=== PATIENT | male | born 1930 | race Caucasian/White ===

== ENCOUNTER 2016-10-19 21:11 | Inpatient (IN) | payer OTHER ==
--- NOTE | ~2016-10-19 | CN ---
Consultation Report [facility] [address] [place]. [address] NAME: KATHERINE UREÑA : 32 STATUS : ADM Caty PAT#: [id number] AGE: 85 ADM/REG DATE : 10/19/16 MR#: [id number] REPORT SERV DATE: 10/22/16 DICTATED BY: GUCCI POOL DATE: 10/22/16 REPORT STATUS : Draft TRANSCRIBED BY: MODJeovany DATE: 10/22/16 CONSULTATION NOTE DATE OF CONSULTATION: 10/22/2016 REASON FOR CONSULTATION: Tight left main coronary artery stenosis with unstable anginal symptoms. CHIEF COMPLAINT: "I had chest discomfort and shortness of breath for about ten days and came to the emergency room". HISTORY OF PRESENT ILLNESS: This 85-year-old gentleman with prior history of coronary artery disease, status post PCI with stenting thirteen years ago, reports being in his usual state of health until approximately ten days prior to admission. He notes that, he began to have progressive shortness of breath and exercise intolerance around that time. He had associated chest discomfort and found that his symptoms were relieved with rest. Typically fifteen minutes of rest would give him full relief and he would proceed with his activities. Over time, this became more pronounced and his ended up bringing him to the emergency department on 10/19/2016. At that time, his troponin I was elevated, and he was hospitalized for further evaluation. His EKG showed sinus rhythm. He underwent coronary arteriogram today that demonstrated severe left main coronary artery stenosis in excess of 95%. His echocardiogram showed near normal left ventricular function, ejection fraction of 55%, with calcified posterior mitral valve leaflet and mild mitral regurgitation. We were asked to see for possible urgent coronary artery bypass grafting and this was discussed with the patient and his in the room today. PRIOR MEDICAL HISTORY: 1. Coronary artery disease. 2. Status post prior PCI and stenting. 3. Hypertension. 4. Type 2 ipn-lycpzgr-bagkedoie diabetes mellitus. 5. Prostate cancer. 6. Glaucoma, status post left corneal transplant. 7. Probable esophageal stricture, dysphagia. PRIOR SURGICAL HISTORY: 1. Significant for lower extremity vein stripping. 2. Previous hemorrhoidectomy. 3. Left corneal transplant. 4. Prostate cryoablation. ALLERGIES: NONE KNOWN. MEDICATIONS: Include aspirin 81 mg daily, coenzyme Q10 200 mg p.o. daily, Glucotrol 10 mg Consultation Report [facility] [id number] [place]. [address] NAME: KATHERINE UREÑA : 32 STATUS : ADM Caty PAT#: [id number] AGE: 85 ADM/REG DATE : 10/19/16 MR#: [id number] REPORT SERV DATE: 10/22/16 DICTATED BY: GUCCI POOL DATE: 10/22/16 REPORT STATUS : Draft TRANSCRIBED BY: MICHAEL DATE: 10/22/16 p.o. daily, Prinzide 29/05.5 tabs one tab p.o. daily, Lotemax 0.5% ophthalmic suspension in left eye four times daily, metformin 1000 mg p.o. at bedtime, multivitamins with minerals one tablet p.o. daily, ofloxacin drops in left eye at bedtime daily, omega-3 fatty acid 1000 mg p.o. daily, simvastatin 40 mg p.o. at bedtime, Tess-128 5% one drop in right eye four times daily, Robitussin DM 5 mL p.o. q.i.d. p.r.n. cough, and joint support over the counter supplement one p.o. daily. SOCIAL HISTORY: He is retired, physically active and walks daily. He is . He denies use of tobacco, alcohol, or illicit drugs. He has two sons, one here today, and one son has palpitations. FAMILY HISTORY: Mother in child . He has one sister, who had carcinoma of the gallbladder. Otherwise, negative or as above. REVIEW OF SYSTEMS: GENERAL: Positive for his left corneal transplant, wearing upper dentures, missing lower teeth, recent shortness of breath and chest discomfort, negative for history of stroke, TIA, bleeding problems, or easy bruising. He did have history of prostate carcinoma and apparently has rising PSA per his last test. He is followed by Dr. Croft for that. He does have history of difficulty with food hanging up and sometimes regurgitating after eating. He suspects that, he has esophageal stricture, but has never seen a cottage supervisor or had endoscopy. He has lower extremity discomfort with walking, and recent testing showed no significant flow-limiting disease. Although, he has atherosclerotic disease in the lower extremities. PHYSICAL EXAMINATION: GENERAL: He is a pleasant elderly white male, in no acute distress. His height is 177.8 cm, weight 91.17 kg. VITAL SIGNS: Blood pressure 115/53, temperature 97.8, pulse is 59, respirations 20, saturation 95%. HEENT: Normocephalic, atraumatic. He has a full head of white hair, and pupils are equal, round, reactive to light and accommodation, sclerae clear, conjunctivae pink. Oral and buccal mucosa pink and moist, missing many lower teeth, but remaining teeth are in reasonable condition, although worn. He has upper dentures in place. Mallampati class 3 airway. NECK: Supple. No restricted range of motion. No carotid bruits, no jugular venous distention. Normal carotid upstroke. CHEST: Clear to auscultation, no use of accessory muscles, no chest wall tenderness, no deformity. CV: Regular rate and rhythm without murmur or rub. He has palpable and symmetric central and peripheral pulses, no clubbing, no cyanosis, nor edema. He does have varicosities in the lower extremities and scarring consistent with previous endoscopic vein stripping or harvest. ABDOMEN: Soft, obese, nontender, with normoactive bowel sounds. No hepatosplenomegaly. Consultation Report [place] [facility] [id number] [facility] [place]. [address] NAME: KATHERINE UREÑA : 32 STATUS : ADM Caty PAT#: [id number] AGE: 85 ADM/REG DATE : 10/19/16 MR#: [id number] REPORT SERV DATE: 10/22/16 DICTATED BY: GUCCI POOL DATE: 10/22/16 REPORT STATUS : Draft TRANSCRIBED BY: MICHAEL DATE: 10/22/16 /RECTAL: Declined. MUSCULOSKELETAL: No kyphoscoliosis. No asymmetry. NEUROLOGIC: He is alert, oriented to day, date, place, and situation. No tremors. SKIN, HAIR, AND NAILS: As above. No lesions, masses, or rashes. DATA: His coronary arteriogram which I reviewed today showing very tight stenosis at the ostia of the proximal LAD and proximal circumflex 99% or greater, 75% mid LAD stenosis, and 50% right PDA stenosis as well as 75% ramus stenosis. His labs show sodium of 138, potassium 4.2, chloride 104, CO2 of 25, BUN 40, creatinine 1.34. CBC is unremarkable. His lipid profile is unremarkable. EKG shows sinus rhythm. IMPRESSION: Multivessel coronary artery disease with tight left main equivalent, normal left ventricular function. We talked with him about possible coronary artery bypass grafting today, and the indications, benefits, and serious risks which include things like bleeding, infection, pneumonia, blood transfusions, damage to the kidneys, liver or lungs, heart attack, stroke, abnormal heart rhythm, mediastinitis, and even . Given his prior history of vein stripping, he will need vein mapping today prior to his surgery. We will hold his Prinzide in preparation for surgery anticipated tomorrow, and start him on vitamin C. We will also hold metformin. Using Society of Thoracic Surgeons database for risk prediction, mortality is predicted at 4.491%, any morbidity or mortality of 27.498% and this is discussed with the patient and his family today. We appreciate very much the opportunity to participate in this gentleman's care. MARTHA/MICHAEL Gucci Pool NSkyP. / [id number] CC: Amparo Ghotra M.D.
--- NOTE | ~2016-10-19 | CN ---
Consultation Report [facility] [address] [place]. [address] NAME: KATHERINE CARO : 32 STATUS : ADM IN [facility]#: [id number] AGE: 85 ADM/REG DATE : 10/19/16 MR#: [id number] REPORT SERV DATE: 10/26/16 DICTATED BY: MARTHA URIAS DATE: 10/26/16 REPORT STATUS : Draft TRANSCRIBED BY: MICHAEL DATE: 10/26/16 ELECTROPHYSIOLOGY CONSULTATION DATE OF CONSULTATION: 10/26/2016 REASON FOR CONSULTATION: Regarding sinus bradycardia and junctional bradycardia. HISTORY OF PRESENT ILLNESS: Mr. Caro is a pleasant 85-year-old gentleman, who underwent CAB earlier this week by Dr. Zacarias Schuster. He was receiving amiodarone and metoprolol in the postoperative care and prevention of atrial fibrillation and in that setting, had some junctional bradycardia and was still pacing from his epicardial pacing wires. Both of those medicines were stopped, and today, he is in normal sinus rhythm. We have been consulted about the possible pacemaker. PAST MEDICAL HISTORY: Notable for coronary disease, status post recent CAB; diabetes; osteoarthritis; history of prostate CA, treatment in 1994; hypertension; GE reflux disease. CURRENT MEDICATIONS: Aspirin, Pepcid, NovoLog insulin, nitroglycerin ointment. FAMILY HISTORY: Noncontributory. Negative for premature coronary disease. SOCIAL HISTORY: Negative for tobacco or alcohol. DIAGNOSTIC STUDIES: EKG currently demonstrates sinus rhythm with normal intervals. No evidence for ischemia, infarction, or chamber hypertrophy. Echocardiogram has shown normal cardiac structure and function, ejection fraction 55%. 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 At this point, I do not feel a permanent pacemaker is required. We will continue to follow him for any bradycardia, arrhythmias or any atrial fibrillation, or other tachyarrhythmias. We will try to avoid beta-blockers and amiodarone or any other sinus node suppressive agents. CAROLINE/MICHAEL Martha Urias M.D. / [id number] CC: Fahad Aguilar Jr, MD Consultation Report [place] [address] [facility] [place]. [address] NAME: KATHERINE CARO : 32 STATUS : ADM IN PAT#: [id number] AGE: 85 ADM/REG DATE : 10/19/16 MR#: [id number] REPORT SERV DATE: 10/26/16 DICTATED BY: MARTHA URIAS DATE: 10/26/16 REPORT STATUS : Draft TRANSCRIBED BY: MODL DATE: 10/26/16 Harshad Jones M.D.
--- NOTE | ~2016-10-19 | OP ---
Record Of Operation [facility] [address] [place]. [address] NAME: KATHERINE UREÑA : 32 STATUS : ADM Caty PAT#: [id number] AGE: 85 ADM/REG DATE : 10/19/16 MR#: [id number] REPORT SERV DATE: 10/23/16 DICTATED BY: CECE SCHUSTER DATE: 10/23/16 REPORT STATUS : Draft TRANSCRIBED BY: MODJeovany DATE: 10/23/16 DATE OF PROCEDURE: 10/24/2015 PREOPERATIVE DIAGNOSES: 1. Coronary artery disease with mjh-ST-njuurwmks myocardial infarction. 2. Type 2 eev-uggselk-ajhkslxkj diabetes mellitus. 3. Chronic kidney disease, stage II or III. 4. History of prostate carcinoma. 5. Hypertension. 6. Hyperlipidemia. POSTOPERATIVE DIAGNOSES: 1. 2. Coronary artery disease with msr-ZW-rstbauwpo myocardial infarction. 3. Type 2 bmj-owureei-aoerbzqpa diabetes mellitus. 4. Chronic kidney disease, stage II or III. 5. History of prostate carcinoma. 6. Hypertension. 7. Hyperlipidemia. PROCEDURE PERFORMED: 1. Urgent coronary artery bypass grafting x4, left internal mammary artery placed to left anterior descending, reverse saphenous vein graft placed to the ramus intermedius, reverse saphenous vein graft placed to the first obtuse marginal, reverse saphenous vein graft placed to the posterior descending artery. 2. Endoscopic vein harvest, saphenous vein from right and left thighs. 3. Transesophageal echocardiography. SURGEON: Cece Schuster M.D. SENIOR WATER RESOURCES ENGINEER: Jasbir Dupont and Yessica Llamas. ANESTHESIA: General with Roberto Carlos Crowder M.D. SALES MANAGEMENT INTERN: Kenia Berger M.D. INDICATIONS: This is an 84-year-old gentleman with type 2 diabetes and hypertension who developed sudden onset of chest discomfort on 10/19/2016. He came to the emergency room and ruled in for myocardial infarction. He was medically stabilized and transferred to the floor. Over the weekend, he was medically managed with good resolution of chest pain. On Saturday morning, he underwent a cardiac catheterization, it demonstrated significant left main equivalent coronary disease and posterior descending artery disease. His ventricular function was preserved with an ejection fraction greater than 50%. He underwent echocardiogram that did not show any surgically significant valvular dysfunction. There was mild mitral valve insufficiency. Ejection fraction was 60%. We were asked to see the patient for possible urgent revascularization and discussed this operation with the patient Record Of Operation [address] [place]. [address] NAME: KATHERINE UREÑA : 32 STATUS : ADM Caty PAT#: [id number] AGE: 85 ADM/REG DATE : 10/19/16 MR#: [id number] REPORT SERV DATE: 10/23/16 DICTATED BY: CECE SCHUSTER DATE: 10/23/16 REPORT STATUS : Draft TRANSCRIBED BY: MICHAEL DATE: 10/23/16 and his family. After lengthy discussion of the operation, its indications and risks, they wished to proceed. Operative risk includes a mortality of 4.5% by STS criteria and morbidity mortality of 27.5%, and this was shared with the family. FINDINGS AT OPERATION: 1. Cross-clamp 57 minutes. Total pump time 70 minutes. 2. The LAD was a 2 mm moderately diseased vessel. A 2.5 mm BERGER was anastomosed to it with good runoff. 3. The ramus intermedius was 1.75 mm heavily diseased. A 4 mm RSVG was anastomosed to it with good runoff. 4. The first obtuse marginal was 1.75 mm moderately diseased. A 4 mm RSVG was anastomosed to it with good runoff. 5. The posterior descending artery was 1.75 mm moderately diseased. A 4 mm RSVG was anastomosed to it with runoff. 6. The vein quality was okay. This did appear to be accessory saphenous vein in the leg from both thighs. The greater saphenous vein had been removed earlier for the family and patient when the patient had vein stripping. The vein quality did appear to be good. All grafts did have good Doppler signal at the end of the case. 7. PEDRO at the end of the operation demonstrated good ventricular function. There was a small PFO present with [id number]-mw-mlqzb shunt. There was mild mitral insufficiency and mild aortic insufficiency. PATHOLOGIC SPECIMENS: None. DESCRIPTION OF PROCEDURE: The patient was brought to the operating suite where general anesthesia was induced and airway secured with an endotracheal tube. Lines secured by Anesthesia and Hernandez catheter was placed. The patient's chest, abdomen, groin, and legs were prepped with Hibiclens and ChloraPrep and draped with Ioban sterile sheets. PEDRO probe was placed by Dr. Crowder and examination carried out as discussed above. The saphenous vein was harvested from the right and left thighs using endoscopic technique. Briefly, the vein was cut directly down upon through a 2 cm incision placed at the medial aspect of both knees. Then, using VasoView trocars, the vessels were dissected from the surrounding subcutaneous tissue and fat. The side branches were identified, ligated, divided with cautery. Once adequate length of vein had been dissected, a counter incision was made in both groins where the vein was ligated, divided, and brought through the knee incisions. The vein quality from both thighs was reasonable. We did obtain enough conduit I felt for bypass material. The leg wounds were then made hemostatic and closed in layers with absorbable suture, and skin closed subcuticular fashion. Then, a midline sternal incision was made and the sternum opened with a saw. The left hemithorax was elevated and the endothoracic fascia was incised. Side branch of the MARÍA were clipped and divided. Once the MARÍA was completely dissected, the patient was anticoagulated with heparin and chest tube placed in the left pleural cavity. The MARÍA was clipped and divided distally. There was good flow through the MARÍA and its pedicle was infiltrated with papaverine. Record Of Operation [place] [id number] [facility] [place]. [address] NAME: KATHERINE UREÑA : 32 STATUS : ADM Caty PAT#: [id number] AGE: 85 ADM/REG DATE : 10/19/16 MR#: [id number] REPORT SERV DATE: 10/23/16 DICTATED BY: CECE SCHUSTER DATE: 10/23/16 REPORT STATUS : Draft TRANSCRIBED BY: MODL DATE: 10/23/16 Next, the Sd retractor was placed in the pericardium over from the innominate vein. The diaphragm was T'd and tacked to the side of the chest wall. Cannulation pursestring sutures were placed and cannulation was carried out in routine manner. A retrograde cardioplegia cannula was placed in the coronary sinus. When all was in readiness, the patient was placed on cardiopulmonary bypass. Distal targets were marked out on the heart as described in the findings. Then, a heart support was placed. The aorta was crossclamped and an initial dose of cold blood cardioplegia solution was given in a combination of antegrade and retrograde fashion, and then a retrograde manner following proximal anastomoses. Following the first dose of cardioplegia, the heart was positioned for the PDA graft. Arteriotomy was made. The vein graft trimmed and anastomosed to it with 7-0 Prolene. This vein graft was measured back to the right side of the ascending aorta where it was divided. We then positioned the heart for the obtuse marginal graft. Another arteriotomy was made. The vein graft trimmed and anastomosed to it with 7-0 Prolene. This vein graft was then measured back to the left side of the ascending aorta where it was divided. Next, the proximal ends of the 2 vein grafts were anastomosed to 5 mm punch aortotomy with 6-0 Prolene. Another dose of cardioplegia was given and the heart was positioned for the ramus intermedius graft. Arteriotomy was made, and the vein graft trimmed and anastomosed to it with 7-0 Prolene. The vein graft was measured back to the left side of the ascending aorta where it was divided and anastomosed to a 4.5 mm punch aortotomy with 6-0 Prolene. Another dose of cardioplegia was given. We then positioned the heart for the LAD graft. Warming was begun. Arteriotomy was made at the mid LAD. The MARÍA was brought out the left chest through a notch in the pericardium over the pulmonary artery. The MARÍA was opened and anastomosed to the LAD with running suture of 8-0 Prolene. The endothoracic fascia was tacked to the epicardium. The patient was placed in Trendelenburg and final dose of warm blood cardioplegia given in a retrograde fashion. Ventricular and atrial pacing wires were placed. Following the last dose of cardioplegia and deairing of the aorta, the aortic cross clamp was removed. The distal and proximal anastomoses were inspected and made hemostatic. Doppler demonstrated good flow through the grafts. The heart resumed a slow sinus rhythm spontaneously and was paced in an atrial fashion at a rate of 80. Ventilation was begun. When the heart demonstrated good contractility, it was allowed to fill and eject. When deairing was completed, the patient was taken out of Trendelenburg. The ascending aortic vent removed and these pursestring sutures were tied and reinforced. The patient continued to do well and chest irrigated copiously with saline. Meticulous hemostasis was obtained. Hemasorb was placed along the cut edge of the sternum. Once the hemostasis was assured, the pericardium was draped over the anterior surface of the heart and tacked into position. Doppler demonstrated good flow through the grafts following protamine administration. Then, chest tubes were placed. The sternum was reapproximated with eight sternal wires. The clavipectoral fascia and linea alba closed with #1 Stratafix. Subcutaneous tissue was closed with Stratafix and skin closed in subcuticular fashion. Record Of Operation [address] [address] NAME: KATHERINE UREÑA : 32 STATUS : ADM Caty PAT#: [id number] AGE: 85 ADM/REG DATE : 10/19/16 MR#: [id number] REPORT SERV DATE: 10/23/16 DICTATED BY: CECE SCHUSTER DATE: 10/23/16 REPORT STATUS : Draft TRANSCRIBED BY: MICHAEL DATE: 10/23/16 The patient tolerated the procedure well. There were no complications. Sponge and needle counts were correct. DISPOSITION: The patient was left intubated, sedated, and transported to the intensive care unit in stable condition. DIAMOND/MICHAEL Cece Schuster M.D. / [id number] CC: Mian Cheema M.D. Ondrej J Lisy, M.D.
--- NOTE | ~2016-10-19 | HP ---
History And Physical [place] [id number] [facility] [place]. [address] NAME: KATHERINE UREÑA : 34 STATUS : ADM Caty PAT#: [id number] AGE: 85 ADM/REG DATE : 10/19/16 MR#: [id number] REPORT SERV DATE: 10/19/16 DICTATED BY: EMMA CAPONE DATE: 10/19/16 REPORT STATUS : Draft TRANSCRIBED BY: MODJeovany DATE: 10/19/16 DATE OF ADMISSION: 10/19/2016 CHIEF COMPLAINT: Chest pain, direct admission/transfer from outside hospital facility. HISTORY OF PRESENT ILLNESS: According to the information available, patient is a pleasant 85 year-old man, very active, with history of hypertension, coronary artery disease, status post prior cardiac stent over 15 years ago, history of diabetes, high cholesterol who presented to the emergency room department at [facility] in [place], [place] with complaints of chest pain. Patient and patient's family noticed that patient has started for the last eight to ten days to experience chest pain with exertion, chest tightness, and shortness of breath progressively with exertion. Patient has been working in his yard rather heavily for the last week and he has noticed that progressively he has started to have to rest to catch his breath to alleviate the chest discomfort sensation that he was getting while doing physical activity. Also, family has noticed that the symptoms has progressively worsened, becoming short of breath much easier than before. All symptoms were relieved with resting. No fever or chills reported; increasing cough, but attributed by the patient to allergies as this one dry cough. Today patient has been celebrating his 's birthday, but it seems that he had difficulties at times swallowing and he felt like he was choking. Therefore, he had several spells of coughing and then vomiting x1 after eating and then he developed a significant chest tightness. Patient's stated that he did not look good when he had returned from the bathroom and he had continued to complain of chest pain. Therefore, he was brought to the emergency room. In the emergency room, patient was noticed also to be hypertensive. Initial blood pressure 196/88 and later on during his stay in the emergency room in [facility], recorded blood pressure 205/110 by report. Patient has received treatment with nitroglycerin and aspirin and his symptoms of chest pain and tightness and shortness of breath has resolved. Because of the above presentation and because patient has a new technical documentation specialist, Dr. Call with [facility], patient was requested for transfers with direct admission under our Hospitalist Service for further management and evaluation. Note that initial cardiac markers, troponin I was negative at 0.02 and EKG showed no acute ischemic ST-T changes. Presently patient is symptom free, lying comfortably in bed. PAST MEDICAL HISTORY: Significant for hypertension. Significant for coronary artery disease, status post cardiac stent 15 years ago, apparently Dr. Honeycutt at the [place]. Patient had most recently been evaluated with a cardiac stress test in 2014 that showed no reversible ischemia and by records a 2D echo in 07/2015 showed ejection fraction 60%, mild diastolic dysfunction. History of diabetes type 2, not insulin dependent; history of hyperlipidemia; history of prior prostate cancer, treated surgically; history of corneal transplant and glaucoma. PAST SURGICAL HISTORY: Significant for TURP by Dr. Croft; history of hemorrhoidectomy; history of bilateral cataract surgery; cardiac stent in 2001; transplant cornea in 2014. ALLERGIES: NO KNOWN DRUG ALLERGIES. History And Physical [address] [address] NAME: KATHERINE UREÑA : 32 STATUS : ADM Caty PAT#: [id number] AGE: 85 ADM/REG DATE : 10/19/16 MR#: [id number] REPORT SERV DATE: 10/19/16 DICTATED BY: EMMA CAPONE DATE: 10/19/16 REPORT STATUS : Draft TRANSCRIBED BY: MICHAEL DATE: 10/19/16 HOME MEDICATIONS: According the list provided, patient is supposed to take loteprednol 0.5% ophthalmic suspension one drop four times a day in the left eye, Ocuflox 0.3% ophthalmic solution one drop at bedtime in the left eye, ophthalmic solution Tess 128, 5% one drop four times a day in the right eye, Glucotrol 10 mg p.o. daily, lisinopril HCTZ 20/12.5 one p.o. daily, omega-3 fatty acid fish oil 1000 mg p.o. daily, multiple vitamin with minerals Centrum tablet one p.o. daily, aspirin 81 mg p.o. daily, coenzyme Q10 200 mg p.o. daily, Robitussin rmip-aot-czvnnen, the patient has taken only one dose today p.r.n. cough, Zocor 40 mg p.o. at bedtime, metformin 1000 mg p.o. at bedtime and gsgv-lht-lizjxqy "joint support" one tablet p.o. daily. SOCIAL HISTORY: The patient is retired, , lives with family. Denies tobacco abuse. He drinks alcohol on rare occasional situations. Denies IV illicit recreational drug abuse. Very active at home. FAMILY HISTORY: Significant for hypertension, also history of stomach cancer. REVIEW OF SYSTEMS: Per H and P, otherwise negative in all review of systems. Please note, the comprehensive review of system was obtained and pertinent positives were including in the H and P. PHYSICAL EXAMINATION: GENERAL: Pleasant, cooperant, in no acute distress at this moment. VITAL SIGNS: On arrival in our hospital, blood pressure 184/84, pulse 65, respiratory rate 20, temperature 98.1, oxygen saturation 94% in room air. Note that vital signs at the emergency room department [facility] showed blood pressure 196/88, it was high as 205/110, pulse 71, oxygen saturation 97% in room air. HEENT: With bilateral cataracts. Extraocular movements intact. Throat, mild erythema. No exudate. NECK: Supple. No JVD. No bruits. No thyromegaly. No lymph nodes. LUNGS: Bilateral air entry with few dry crackles at bases. No wheezing. Good airway movement. HEART: Positive S1, S2. Regular rate and rhythm. Positive soft mitral regurgitation murmur at the apex. Increased S2 at the aortic area. No rub, no gallop. PMI nondisplaced by palpation. ABDOMEN: Positive bowel sounds. Soft, nontender, no guarding, no hepatosplenomegaly. EXTREMITIES: Decreased range of motion. Osteoarthritic changes. No clubbing, no cyanosis, no edema, no calf tenderness. +2 pulses. NEUROLOGIC: Alert and oriented x3. Grossly nonfocal. Cranial nerves II through XII grossly intact. Motor strength 5/5 symmetrical bilateral. Deep tendon reflexes 2/2, symmetrical bilateral. BACK: With decreased range of motion, but no focal localized tenderness. No CVA tenderness. SKIN: No bruises, no rashes, no lacerations. SIGNIFICANT LABORATORY DATA: EKG sent with the patient from [facility] department showed normal sinus rhythm at 77 beats per minute. No acute ST elevation. History And Physical [address] [address] NAME: KATHERINE UREÑA : 32 STATUS : ADM Caty PAT#: [id number] AGE: 85 ADM/REG DATE : 10/19/16 MR#: [id number] REPORT SERV DATE: 10/19/16 DICTATED BY: EMMA CAPONE ION DATE: 10/19/16 REPORT STATUS : Draft TRANSCRIBED BY: MODL DATE: 10/19/16 No old EKG available for comparison. No other laboratory data available as patient is a direct admission. Please note that the review of the medical records sent with the patient shows reports of the chest x-ray that showed no acute infiltrate. White cell count 7.8, hemoglobin 13.1, platelet count 219. Sodium 135, potassium 4.7, chloride 104, bicarb 22, BUN 37, creatinine 1.3, glucose 227, calcium 9.4. Liver function tests within normal limits. Troponin I 0.02, which is within normal limits. ASSESSMENT AND PLAN AND PROBLEM LIST: Patient is a pleasant 85-year-old white man with known history of prior coronary artery disease and prior cardiac stent, presented with chest pain and symptoms suggesting crescendo angina. IMPRESSION: 1. Cardiovascular. a. Chest pain with moderate risk for acute coronary syndrome with symptoms suggesting crescendo angina. b. Coronary artery disease, status post prior cardiac stent. c. Hypertension urgency. d. Congestive heart failure with mild diastolic dysfunction by prior 2D echo. For all the above, patient has been admitted on the Hospitalist Service under telemetry setting. We are going to continue to monitor CK and troponin I and monitor EKG. We are going to further investigated with a nuclear medical stress test in a.m. and a 2D echo. Obtain Cardiology consult with Dr. Jakub [facility], especially with the patient's family's request. Obtain bilateral renal arterial Doppler ultrasound to assess for possible renal artery stenosis. Continue nitro paste 1 inch q.8 hours and continue aspirin and use lisinopril 20 mg p.o. b.i.d. Add small dose of Coreg as tolerated, 6.25 mg p.o. b.i.d. Use IV hydralazine p.r.n. for increased blood pressure. Strict I's and O's and daily weights. 1. Endocrinologic problem. a. Diabetes type 2, not insulin dependent without complications. We are going to hold metformin for now. We are going to hold Glucotrol if patient is n.p.o. and use only sliding scale NovoLog insulin. Check a hemoglobin A1c. Provide dietary changes and diabetic education. b. Hyperlipidemia, mixed type. Continue low-cholesterol diet. Continue statin. 2. Osteoarthritis. Provide adequate pain control. 3. Prostate cancer by history. 4. Gastroesophageal reflux disease with possible esophageal stricture. Recommend further outpatient evaluation and followup and possible EGD. 5. Glaucoma and status post corneal transplant. Continue patient's ophthalmic drops. PROGNOSIS: Good for this admission. Discussed with patient and patient's family, questions were answered in full. Please note, the patient is a full code at this moment as discussed with patient at bedside. Please note, also the written H and P, and written orders and instructions. RF/MODL History And Physical [address] [address] NAME: KATHERINE UREÑA : 32 STATUS : ADM Caty PAT#: [id number] AGE: 85 ADM/REG DATE : 10/19/16 MR#: [id number] REPORT SERV DATE: 10/19/16 DICTATED BY: EMMA CAPONE ION DATE: 10/19/16 REPORT STATUS : Draft TRANSCRIBED BY: MICHAEL DATE: 10/19/16 Emma Capone M.D. / [id number] CC: MD Harshad Cha M.D. Vinay Deep Madan, MD
--- NOTE | ~2016-10-19 | CN ---
Consultation Report [facility] [address] [place]. [address] NAME: KATHERINE UREÑA : 32 STATUS : ADM IN PAT#: [id number] AGE: 85 ADM/REG DATE : 10/19/16 MR#: [id number] REPORT SERV DATE: 10/25/16 DICTATED BY: HANNAH SEGOVIA DATE: 10/25/16 REPORT STATUS : Draft TRANSCRIBED BY: MODJeovany DATE: 10/25/16 NEPHROLOGY CONSULTATION DATE OF CONSULTATION: 10/25/2016 REASON FOR CONSULTATION: Acute renal failure. HISTORY OF PRESENT ILLNESS: This is an 85-year-old, gentleman, who has known history of coronary disease and who may also have early stage 3 chronic kidney disease with baseline creatinine typically ranging from 1.15 to 1.3 mg/dL. He does have a longstanding history of diabetes and hypertension. He presented on 10/19/2016 with progressive chest discomfort and shortness of breath and exercise intolerance. He was evaluated by the unindentured apprentice, underwent coronary arteriogram which demonstrated 99% stenotic left main disease. He underwent urgent coronary artery bypass grafting on 10/23/2016. The surgery was largely uneventful, and the patient was rapidly extubated in the ICU and went to the floor the next day, which would have been yesterday 10/24/2016. Serum creatinine the day of surgery was 1.12 mg/dL. The subsequent day, it measured 1.17 mg/dL. Overnight last night, he was noted to have junctional rhythm for 6 hour span with escape rates dropping into the 30s to 40s beats per minute. He was noted to have systolic blood pressures in the 100s where as previously his systolics have been in the 130s frequently. He was having a little bit of chest discomfort at that time. A transvenous pacemaker was placed early this morning with capture rate in the low 80s. He noted immediate drop in chest discomfort when that occurred. Overnight, he had made almost no urine whatsoever. However, he did not have a Hernandez catheter at that time. Hernandez catheter was replaced this morning. He has had about 600 mL urine output since 07:30 a.m. through 1600 hours today. He indicates some burning and a little bit of straining when he is attempting to urinate yesterday. He denies any fevers, chills, loss of appetite, or diarrhea. He is tolerating p.o. food and drink. He has no prior history of acute renal failure, and there is no history in the family of kidney disease. His creatinine today measures 2.32 mg/dL, and we were consulted to assist. PAST MEDICAL HISTORY: 1. Possibly chronic kidney disease stage 3 with baseline creatinine from the old records measuring 1.1 to 1.3 mg/dL. 2. Longstanding history of diabetes type 2. 3. Longstanding history of hypertension. 4. Coronary artery disease, for which he had undergone cardiac stent vessel stenting a couple of years ago. He underwent CABG x3 vessels on 10/23/2016. He had a non ST- elevated myocardial infarction which was very mild when he presented. 5. Remote prostate cancer several years ago which required radiation and chemotherapy followed by cryotherapy. 6. Hyperlipidemia. 7. Status post TURP. 8. History of corneal transplant in 2014. 9. History of glaucoma. Consultation Report [address] [address] NAME: KATHERINE UREÑA : 32 STATUS : ADM IN [facility]#: [id number] AGE: 85 ADM/REG DATE : 10/19/16 MR#: [id number] REPORT SERV DATE: 10/25/16 DICTATED BY: HANNAH SEGOVIA DATE: 10/25/16 REPORT STATUS : Draft TRANSCRIBED BY: MICHAEL DATE: 10/25/16 10.Possible history of esophageal strictures. 11.Osteoarthritis especially affecting the hands. He indicates that he has been taking Advil on a daily basis for the past 2 years. HOME MEDICATIONS: Baby aspirin, Co-Enzyme Q10, glipizide, lisinopril/HCTZ, loteprednol ophthalmic suspension, metformin, multivitamin, ofloxacin ophthalmic drops, omega-3 fatty acid capsules, simvastatin, sodium chloride ophthalmic washes, Robitussin as needed, some type of dietary supplement for joint support which is not named in the chart. ALLERGIES: NO KNOWN DRUG ALLERGIES. SOCIAL HISTORY: He lives with his , who is very supportive. He does not smoke or abuse alcohol or any illicit substances. He stays very physically active in the yard and does a lot of work in the yard. He has two sons. FAMILY HISTORY: His mother in childbirth. He has one sister who had carcinoma of the gallbladder. REVIEW OF SYSTEMS: GENERAL: Denies any fevers or chills. GI: Denies nausea, vomiting, or diarrhea. RESPIRATORY: Denies any coughing. CARDIOVASCULAR: At present denies any chest discomfort. : He indicates that when the Hernandez catheter was taken out early yesterday that he had significant straining and burning sensation when he attempted to urinate. He cannot say with certainty that his bladder has become distended with urine. According to his nurse, he did not have a dramatically elevated postvoid residual when the Hernandez catheter was replaced today. SKIN: No acute rashes. NEUROLOGIC: He denies lightheadedness when he stands to ambulate. All other review of system was negative and noncontributory. PHYSICAL EXAMINATION: VITAL SIGNS: Temperature 98.8, blood pressure 149/67. Notably his systolic dropped into the low 100s multiple times last night while he was in junctional rhythm. Heart rate 72 beats per minute. Respiratory rate 16 breaths per minute. GENERAL: He is well-developed, well-nourished gentleman, who appears his stated age. He is alert, lucid, and in no distress. He is very pleasant. HEENT: Normocephalic, atraumatic. External ears and nose normal. Sinuses nontender. Oropharynx, mucous membranes are moist and pale, free of any ulcerations or exudates. He has dentures in the upper plate. Eye exam; lids and conjunctivae are free of any exudates or bleeding. Mucous membranes are moist. Sclerae anicteric. Pupils are equal, round, and reactive to light. NECK: Supple. Easily movable without meningismus. No palpable masses or nodules. Trachea Consultation Report [address] [place]. [address] NAME: KATHERINE UREÑA : 32 STATUS : ADM IN [facility]#: [id number] AGE: 85 ADM/REG DATE : 10/19/16 MR#: [id number] REPORT SERV DATE: 10/25/16 DICTATED BY: HANNAH SEGOVIA DATE: 10/25/16 REPORT STATUS : Draft TRANSCRIBED BY: MODL DATE: 10/25/16 midline. Thyroid unremarkable. LYMPHATIC: Anterior and posterior neck, supraclavicular and abdominal regions were free of lymphadenopathy. RESPIRATORY: Efforts are nonlabored. Lung gunter are clear to auscultation throughout. CARDIOVASCULAR: Regular rate and rhythm is appreciated without any gallop, rub, or murmur. He has trace dependent peripheral edema of the legs. He has normal warmth and capillary refill, velocity in the hands and feet. ABDOMEN: Mildly protuberant, nontender. There is no guarding. No evidence of organomegaly. SKIN: No rashes, breakdown, or discoloration. Skin turgor was normal. There is no cyanosis. STUDIES: Urinalysis is pending. Chest x-ray, status post sternotomy. He has mildly elevated right hemidiaphragm and a small right-sided effusion. Chemistry; sodium 137, potassium 5.1, chloride 105, CO2 of 23, BUN 58, creatinine 2.3, magnesium 2.8, albumin 3.7. Total bilirubin, alk phosphatase, ALT, and AST were all within normal limits. Hemoglobin A1c measured 6.5%. Troponin I this morning measured 0.84 ng/mL. IMPRESSION: 1. Acute kidney injury which I doubt is directly related to the CABG which occurred two days ago. I would have expected a rise in serum creatinine quicker than what we are seeing. I think it is more likely that he had retention that has been relieved with Hernandez catheter. Other thought would be hypotension causing overt prerenal entity versus acute tubular necrosis. 2. Chronic kidney disease stage IIIA based on old records of serum creatinine. 3. Osteoarthritis, using chronic NSAIDs which may be contributing to CKD stage IIIA. 4. Postoperative day #2 status post CABG on 10/23/2016. 5. Non ST-elevated myocardial infarction which led to the CABG. 6. Postoperative onst-vf-waebrult anemia. 7. Junctional rhythm overnight last night now with transvenous pacer and more stable rhythm with blood pressure stabilized now. 8. Other past medical history and chronic problems as outlined above. PLAN/RECOMMENDATION: 1. Keep the Hernandez catheter in for now. Measure strict intake and output and document these. 2. Renal diet 1800 calorie. 3. Daily chemistries and daily determination for need for hemodialysis. It is not indicated at this time. 4. Urinalysis as well as random urine sodium, random urine urea, and random urine creatinine, so as to calculate fractional excretion of sodium, fractional excretion of urea. 5. Normal saline 1 L IV 60 mL/h overnight. 6. Renal ultrasound to be undertaken tomorrow if there is failure to improve in any capacity with the aforementioned measures. Thank you for consulting me in the care of this complicated patient. Our service will Consultation Report [place] [address] [place]. [address] NAME: KATHERINE UREÑA : 32 STATUS : ADM IN PAT#: [id number] AGE: 85 ADM/REG DATE : 10/19/16 MR#: [id number] REPORT SERV DATE: 10/25/16 DICTATED BY: HANNAH SEGOVIA DATE: 10/25/16 REPORT STATUS : Draft TRANSCRIBED BY: MICHAEL DATE: 10/25/16 follow carefully. CAROLYN/MICHAEL Hannah Segovia M.D. / [id number] CC: Fahad Aguilar Jr, MD John Cranwell, M.D.
--- NOTE | ~2016-10-19 | DS ---
Discharge Summary [facility] [address] [place]. [address] NAME: KATHERINE UREÑA : 34 STATUS : DIS IN PAT#: [id number] AGE: 85 ADM/REG DATE : 10/19/16 MR#: [id number] REPORT SERV DATE: 10/30/16 DICTATED BY: JR. AGUILAR WILLIAM JOHN DATE: 10/29/16 REPORT STATUS : Draft TRANSCRIBED BY: MICHAEL DATE: 10/29/16 ADMISSION DATE: 10/19/2016 DISCHARGE DATE: 10/29/2016 DISCHARGE DIAGNOSES: Include. 1. 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 2. Atrial fibrillation with rapid ventricular response as well as junctional rhythm on beta-blockade and amiodarone with prolonged bradycardia. 3. Acute kidney injury. 4. Diabetes mellitus type 2. 5. History of hypertension. 6. Hypoxic respiratory failure-resolved. OPERATIONS, PROCEDURES, AND TREATMENTS: Include. 1. Urgent coronary artery bypass graft x4 with left internal mammary artery to the left anterior descending, reverse saphenous vein graft placed to the ramus intermedius, reverse saphenous vein graft placed to first obtuse marginal, and reverse saphenous vein graft placed to the posterior descending arteries with intraoperative transesophageal echocardiogram which showed an ejection fraction of greater than 50% with mild mitral valve insufficiency. 2. Renal artery duplex ultrasound done 10/20/2016 showed no Doppler evidence of significant renal artery stenosis. The renal veins were patent bilaterally. There was elevated resistive indices in both kidneys possibly suggesting underlying medical renal disease. 3. Transthoracic echocardiogram done 10/25/2016 was a technically difficult study due to poor acoustic windows with normal left ventricular systolic function calculated at 55%- 60%, mildly dilated right ventricle with preserved systolic function. There was valvular regurgitation stenosis not assessed on that study. 4. Preoperative transthoracic echocardiogram done on 10/20/2016 with Definity showed normal left ventricular size and function. Ejection fraction 55% with mild left ventricular diastolic dysfunction. There was normal right ventricular size and systolic function. Posteriorly leaflet of the mitral valve was thickened and calcified with mildly restrictive mobility. There was only mild mitral regurgitation. No evidence of mitral stenosis. 5. PA and lateral chest x-ray done 10/21/2016 showed normal heart size with clear lungs. 6. Carotid flow study done 10/22/2016, showed findings compatible with category 1 disease involving the cervical portion of the right and left internal carotid with patent antegrade vertebral flow. 7. Cardiac catheterization done 10/22/2016 which showed severe coronary artery calcifications with 25% origin of left main disease, left main equivalent 99% origin of the LAD with 99% and thrombus or calcified plaque left circumflex with diffusely diseased LAD with 75% and a mid LAD stent. 8. Vein mapping done 10/22/2016. 9. Multiple followup chest x-rays while patient was intubated. 10.Renal ultrasound done 10/25/2016, showed symmetric kidneys with no acute findings. Discharge Summary [place] [id number] [facility] [place]. [address] NAME: KATHERINE UREÑA : 32 STATUS : DIS IN PAT#: [id number] AGE: 85 ADM/REG DATE : 10/19/16 MR#: [id number] REPORT SERV DATE: 10/30/16 DICTATED BY: JR. AGUILAR WILLIAM JOHN DATE: 10/29/16 REPORT STATUS : Draft TRANSCRIBED BY: MICHAEL DATE: 10/29/16 DISCHARGE MEDICATIONS: Include. 1. Vitamin C 1000 mg orally twice a day. 2. Aspirin 81 mg orally daily. 3. Ofloxacin eyedrops, left eye at bedtime. 4. Coenzyme Q 200 daily. 5. Lotemax 1 drop 4 times a day to the left eye. 6. [place]-3 fatty acid 1000 mg daily. 7. Simvastatin 40 mg daily. 8. Artificial tears as needed. 9. Glipizide 10 mg daily. 10.Prinzide-lisinopril/hydrochlorothiazide 20/12.5, one tablet daily. 11.Multivitamin tablet daily. 12.Glucophage 1000 mg at bedtime. 13.Amiodarone 200 mg orally twice a day. HOSPITAL COURSE: The patient was a pleasant 85-year-old gentleman who presented to the emergency room on 10/19/2016 with chest pain. He was a direct admit from [facility]. The patient had been working in the yard heavily for the prior week. He noticed progressively that he started to have trouble catching his breath and doing activity. All symptoms were relieved with rest. He was brought to the emergency room at [facility] and was noted to be hypertensive, treated with nitroglycerin and aspirin. There was concern of cardiac disease. The patient was therefore transferred to [facility] for further care. On initial exam, temperature is 98.1, blood pressure 184/84, heart rate 65, respiratory rate 20, saturating 94% on room air. He had a few dry crackles in the lung. Heart exam was mostly unremarkable. EKG showed no ST elevation. Please see Dr. Emma Nayak's note admission history for complete details. For the chest pain, the patient was seen in consultation by Dr. Berger of Cardiology. Recommended IV heparin, serial cardiac enzymes with coronary angiography planned. The patient underwent echocardiogram and cardiac catheterization which is detailed above. The patient was found to have multivessel coronary artery disease, and was evaluated by Dr. Schuster of Thoracic Surgery and felt to be a good candidate for bypass grafting. The patient underwent a renal duplex study as well as carotid flow study prior to surgery and eventually had 4-vessel coronary artery bypass graft as detailed above. In the postoperative course, patient proceeded quite nicely. Unfortunately, he did develop a junctional rhythm about three days prior to discharge. At that time, he was on amiodarone as well as Coreg and he had prolonged bradycardia. The patient actually had a temporary pacemaker and was paced for approximately 24 hours. With time for amiodarone and beta odessa to wash out, the patient's rhythm returned to sinus rhythm. He did well on this regimen until the evening of 10/28/2016. He again had reversion to rapid ventricular response. He was placed on oral amiodarone with no recurrence. He was seen and evaluated by Cardiology and felt to not need pacemaker at this time. On 10/29/2016, Thoracic Surgery and Cardiology both felt the patient could be discharged home. He has a followup appointment with Dr. Harshad Jones, his primary care provider, tomorrow for Coumadin monitoring and routine health issues. He also has a followup appointment with Dr. Call of Cardiology on 11/27/[address] Marlo Domínguez of Thoracic Surgery on 12/27/2016. Discharge Summary [facility] [address] [place]. [address] NAME: KATHERINE UREÑA : 34 STATUS : DIS IN PAT#: [id number] AGE: 85 ADM/REG DATE : 10/19/16 MR#: [id number] REPORT SERV DATE: 10/30/16 DICTATED BY: JR. AGUILAR WILLIAM JOHN DATE: 10/29/16 REPORT STATUS : Draft TRANSCRIBED BY: MICHAEL DATE: 10/29/16 Regarding the patient's acute kidney injury, this occurred after the episode of bradycardia and likely represented hypoperfusion. His renal function has returned to normal and he is discharged with a BUN of 33 and creatinine of 1.1. As the patient's diabetes mellitus type 2, this is quite well controlled on low doses of insulin and will be reverted back to his oral medications at discharge. DISCHARGE DIET: A cardiac diet/ADA diet. ACTIVITY: As tolerated. For discharge exam and laboratory, please see daily progress note. This discharge took 38 minutes for patient encounter, coordination of care, and documentation. DICTATED BY: Fahad Aguilar Jr, MD WJF/MICHAEL Fahad Aguilar Jr, MD / [id number] CC: Fahad Aguilar Jr, MD John Cranwell, M.D.
--- NOTE | ~2016-10-19 | CN ---
Consultation Report [facility] [address] [place]. [address] NAME: KATHERINE UREÑA : 34 STATUS : ADM Caty PAT#: [id number] AGE: 85 ADM/REG DATE : 10/19/16 MR#: [id number] REPORT SERV DATE: 10/20/16 DICTATED BY: CARLA ACE DATE: 10/20/16 REPORT STATUS : Draft TRANSCRIBED BY: MICHAEL DATE: 10/20/16 CARDIOLOGY CONSULTATION DATE OF CONSULTATION: REFERRING REASON: Chest pain. HISTORY OF PRESENT ILLNESS: This is a pleasant 85-year-old white gentleman, well known to Dr. Call from [facility], who has been transferred last night from [facility] for chest pain and some knee dysphagia. He was found to have elevated blood pressure up to 254/110. I reviewed available records and discussed situation with the patient. He has a known CAD with remote history of PCI to unknown vessels at [facility] 14 years ago. He has diabetes, hypertension, hyperlipidemia. He has a negative cardiac stress test in 2016 with preserved systolic function. Over the last one week, he has exertional dyspnea and poorly defined chest tightness. He has some episodes of dysphagia also. He was feeling congested. His blood pressure was elevated. His initial troponin was negative at an outside emergency room, but now is increasing to 0.06 and 0.08. His chest tightness resolved with some nitro paste. He remains hemodynamically stable. Electrocardiogram is normal. The rest of review of systems negative. The patient denied any lower extremity edema. No palpitation or syncope. PAST MEDICAL HISTORY: Coronary artery disease with remote history of PCI to unknown vessel 14 years ago at [facility], history of negative nuclear cardiac stress test for ischemia in 2016 with EF of 60%, hypertension, hyperlipidemia, diabetes mellitus, peripheral artery disease, history of corneal transplant. ALLERGIES: NO KNOWN DRUG ALLERGIES. HOME MEDICATIONS: Aspirin 81 mg once a day, Glucotrol once a day, lisinopril with hydrochlorothiazide 20/12.5 mg once a day, metformin 1 g twice a day, and simvastatin 40 mg once a day, Robitussin. 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 He is still physically active, working in his yard. He walks without any support. He is . Denies smoking, drinking alcohol, or using street drugs. FAMILY HISTORY: Negative for sudden cardiac or premature coronary artery disease in the family. PHYSICAL EXAMINATION: GEN - No acute distress. VITAL SIGNS: Blood pressure 129/60, heart rate 71 and regular. HEENT - Pupils reactive to light and accommodation. Moist mucosa membrane. NECK: No JVD. Normal carotid upstroke. No carotid bruits. Consultation Report [address] [place]. [address] NAME: KATHERINE UREÑA : 34 STATUS : ADM Caty PAT#: [id number] AGE: 85 ADM/REG DATE : 10/19/16 MR#: [id number] REPORT SERV DATE: 10/20/16 DICTATED BY: CARLA ACE DATE: 10/20/16 REPORT STATUS : Draft TRANSCRIBED BY: MICHAEL DATE: 10/20/16 LUNGS: Clear to auscultation bilaterally. Normal inspiratory efforts. COR: Normal S1, S2. No S3 or S4. No significant rub or murmurs. ABD: Obese, distended, nontender. EXT: No edema. Pedal pulses strong and equal bilaterally. SKIN: Warm with normal turgor. MS - No kyphosis. NEURO/PSY - Alert and oriented. Nonfocal. DATA: CBC remarkable for hemoglobin of 12. Creatinine 1.37. Troponin increasing from 0.06 to 0.08. Electrocardiogram; normal sinus rhythm, 68 beats per minute. No acute ST-T changes. Brain natriuretic peptide 86. Hemoglobin A1c 6.7. Chest x-ray in outside institution was within normal limits. ASSESSMENT AND PLAN: Chest pain, dyspnea, and elevated troponin, likely acute coronary syndrome. The patient will be started on intravenous heparin. We will continue aspirin and nitro paste, and I agree on carvedilol, and continue AMANDA inhibitor and statin. We will proceed with coronary arteriogram on Saturday. The risks and benefits were explained to the patient. He agreed to proceed. We will follow the cardiac enzymes also. Echocardiogram has been already ordered by primary service. NALINI/IMCHAEL Carla Ace M.D. / [id number] CC: Panda Da Silva MD
[~2016-10-19 21:11] MED LIST: CENTRUM PO; COQ10100 MG OR; FISH-EPA1000 MG PO; GLUCOPHAGE1000 MG PO; GLUCOTRO10 PO; ZESTORETIC1 TAB PO; ZOCOR10 PO
[2016-10-19] MEDS ORDERED: LOTEMAX OPH SUSP5 ML OPH (21:39)
[2016-10-19] MEDS ORDERED: OCUFLOX OPH (21:41)
[2016-10-19] MEDS ORDERED: GLUCOTRO10 PO (21:42)
[2016-10-19] MEDS ORDERED: MURO1285% OPH (21:42)
[2016-10-19] MEDS ORDERED: PRINZIDE1 TA1 PO (21:43)
[2016-10-19] MEDS ORDERED: ROBITUSSIN PO (21:43)
[2016-10-19] MEDS ORDERED: FISH-EPA1000 MG PO (21:43)
[2016-10-19] MEDS ORDERED: ZOCOR40 PO (21:44)
[2016-10-19] MEDS ORDERED: ASAB PO (21:44)
[2016-10-19] MEDS ORDERED: CENTRUM PO (21:44)
[2016-10-19] MEDS ORDERED: COQ-10200 MG PO (21:44)
[2016-10-19] MEDS ORDERED: GLUCOPHAGE1000 MG PO (21:45)
[2016-10-19] MEDS ORDERED: JOINT SUPPORT PO (21:45)
[2016-10-19 22:37] LABS: BASOPHILS 0.4 %; BASOPHILS ABSOLUTE 0.03 10/3/uL (0.0-0.16); EOSINOPHILS ABSOLUTE 0.51 10/3/uL (0.0-0.53); HEMATOCRIT 36.9 % (40.0-51.0); HEMOGLOBIN 12.8 g/dL (13.6-17.8); IMMATURE GRANULOCYTES 0.3 %; IMMATURE GRANULOCYTES ABSOLUTE 0.02 10/3/uL (0.0-0.11); LYMPHOCYTES 26.2 %; LYMPHOCYTES ABSOLUTE 1.91 10/3/uL (0.67-4.30); MEAN CORPUS HGB CONC 34.7 g/dL (32.0-36.0); MEAN CORPUSCULAR HEMOGLOB 32.7 pg (26.0-34.0); MEAN CORPUSCULAR VOLUME 94.4 fL (80-100); MEAN PLATELET VOLUME 9.4 fL (9.2-13.0); MONOCYTES 8.4 %; MONOCYTES ABSOLUTE 0.61 10/3/uL (0.21-1.20); NEUTROPHILS 57.7 %; PLATELET COUNT 210 10/3/uL (150-400); RBC DISTRIBUTION WIDTH 13.1 % (12.0-16.0); RED CELL COUNT 3.91 10/6/uL (4.7-6.1); WHITE BLOOD CELLS 7.3 10/3/uL (4.5-10.5)
[2016-10-19 22:38] LABS: MANUAL DIFF NO %
[2016-10-19 22:44] LABS: PARTIAL THROMBO TIME 32.6 SEC (22.5-37.2); PROTIME (NOT ORD) 13.5 SEC (12.0-14.5)
[2016-10-19 22:46] LABS: D-DIMER QUANTITATIVE 0.51 ug/mLFEU (< 0.50)
[2016-10-19 22:55] LABS: ALBUMIN 3.7 G/DL (3.5-5.0); CHLORIDE, SERUM 108 MMOL/L (96-112); CO2 (CARBON DIOXIDE) 24 MMOL/L (24-34); CPK 63 U/L (0-200); CREATININE 1.37 MG/DL (0.70-1.30); GFR AFRICAN AMERICAN 55 ML/MIN (>=60); GFR NON AFRICAN AMERICAN 47 ML/MIN (>=60); GLUCOSE, SERUM 157 MG/DL (60-99); PHOSPHORUS, SERUM 2.5 MG/DL (2.5-4.5); POTASSIUM, SERUM 4.8 MMOL/L (3.5-5.3); SODIUM, SERUM 139 MMOL/L (135-148)
[2016-10-19 22:57] LABS: BUN (BLOOD UREA NITROGEN) 35 MG/DL (6-23)
[2016-10-19 22:58] LABS: TROPONIN I 0.06 NG/ML (<0.05)
[2016-10-20 06:58] LABS: BASOPHILS 0.4 %; BASOPHILS ABSOLUTE 0.03 10/3/uL (0.0-0.16); HEMATOCRIT 36.2 % (40.0-51.0); HEMOGLOBIN 12.2 g/dL (13.6-17.8); IMMATURE GRANULOCYTES 0.3 %; IMMATURE GRANULOCYTES ABSOLUTE 0.02 10/3/uL (0.0-0.11); LYMPHOCYTES 26.5 %; LYMPHOCYTES ABSOLUTE 1.89 10/3/uL (0.67-4.30); MANUAL DIFF NO %; MEAN CORPUS HGB CONC 33.7 g/dL (32.0-36.0); MEAN CORPUSCULAR HEMOGLOB 32.1 pg (26.0-34.0); MEAN CORPUSCULAR VOLUME 95.3 fL (80-100); MEAN PLATELET VOLUME 9.1 fL (9.2-13.0); MONOCYTES 9.1 %; MONOCYTES ABSOLUTE 0.65 10/3/uL (0.21-1.20); NEUTROPHILS 56.7 %; NEUTROPHILS ABSOLUTE 4.05 10/3/uL (2.02-8.40); PLATELET COUNT 204 10/3/uL (150-400); RBC DISTRIBUTION WIDTH 12.9 % (12.0-16.0); WHITE BLOOD CELLS 7.1 10/3/uL (4.5-10.5)
[2016-10-20 07:03] LABS: INTERNATIONAL NORMAL RATI 1.1 UNITS (-); PARTIAL THROMBO TIME 37.7 SEC (22.5-37.2); PROTIME (NOT ORD) 14.4 SEC (12.0-14.5)
[2016-10-20 07:23] LABS: ALBUMIN 3.6 G/DL (3.5-5.0); ALKALINE PHOSPHATASE 42 U/L (45-117); BUN (BLOOD UREA NITROGEN) 32 MG/DL (6-23); CALCIUM, SERUM 8.8 MG/DL (8.5-10.4); CHLORIDE, SERUM 108 MMOL/L (96-112); CO2 (CARBON DIOXIDE) 24 MMOL/L (24-34); CPK 59 U/L (0-200); CREATININE 1.24 MG/DL (0.70-1.30); GFR AFRICAN AMERICAN 62 ML/MIN (>=60); GFR NON AFRICAN AMERICAN 53 ML/MIN (>=60); GLUCOSE, SERUM 148 MG/DL (60-99); HDL CHOLESTEROL 35 MG/DL (> 39); PHOSPHORUS, SERUM 2.7 MG/DL (2.5-4.5); POTASSIUM, SERUM 4.5 MMOL/L (3.5-5.3); SGOT(AST) 17 U/L (5-40); SGPT(ALT) 17 U/L (5-65); SODIUM, SERUM 139 MMOL/L (135-148); TOTAL BILIRUBIN 0.5 MG/DL (0-1.2); TOTAL PROTEIN 6.8 G/DL (6.0-8.5)
[2016-10-20 07:24] LABS: CHOLESTEROL 104 MG/DL (< 200); CK-MB 1.4 NG/ML; DIRECT BILIRUBIN < 0.1 MG/DL (0.0-0.4); INDIRECT BILIRUBIN(NOT ORDER) 0.4 MG/DL (0.1-0.9); LDL CHOLESTEROL 44 MG/DL (< 130); NON-HDL CHOLESTEROL 69 MG/DL (< 160); TRIGLYCERIDE 125 MG/DL (< 150); TROPONIN I 0.08 NG/ML (<0.05)
[2016-10-20 07:27] LABS: B NATRIURETIC PEPTIDE (BNP) 86.9 PG/ML (< 100.0)
[2016-10-20 08:06] LABS: GLYCOHEMOGLOBIN (HbA1c) 6.7 % (4.7-6.1)
[2016-10-21 05:30] LABS: HEMOGLOBIN 12.4 g/dL (13.6-17.8); MEAN CORPUS HGB CONC 34.4 g/dL (32.0-36.0); MEAN CORPUSCULAR HEMOGLOB 32.6 pg (26.0-34.0); MEAN CORPUSCULAR VOLUME 94.7 fL (80-100); MEAN PLATELET VOLUME 9.4 fL (9.2-13.0); PLATELET COUNT 213 10/3/uL (150-400); RBC DISTRIBUTION WIDTH 12.8 % (12.0-16.0); WHITE BLOOD CELLS 7.2 10/3/uL (4.5-10.5)
[2016-10-21 05:31] LABS: MANUAL DIFF YES %
[2016-10-21 05:48] LABS: A/G RATIO 1.1 (0.7-1.9); ALBUMIN 3.7 G/DL (3.5-5.0); ALKALINE PHOSPHATASE 46 U/L (45-117); BUN (BLOOD UREA NITROGEN) 31 MG/DL (6-23); CALCIUM, SERUM 9.3 MG/DL (8.5-10.4); CHLORIDE, SERUM 108 MMOL/L (96-112); CO2 (CARBON DIOXIDE) 24 MMOL/L (24-34); CREATININE 1.25 MG/DL (0.70-1.30); GFR AFRICAN AMERICAN 61 ML/MIN (>=60); GFR NON AFRICAN AMERICAN 53 ML/MIN (>=60); GLOBULIN 3.5 G/DL (2.5-4.1); GLUCOSE, SERUM 155 MG/DL (60-99); POTASSIUM, SERUM 4.4 MMOL/L (3.5-5.3); SGOT(AST) 20 U/L (5-40); SGPT(ALT) 17 U/L (5-65); SODIUM, SERUM 136 MMOL/L (135-148); TOTAL BILIRUBIN 0.4 MG/DL (0-1.2); TOTAL PROTEIN 7.2 G/DL (6.0-8.5); TROPONIN I 0.03 NG/ML (<0.05)
[2016-10-21 06:38] LABS: EOSINOPHILS 3 %; EOSINOPHILS ABSOLUTE (CALC) 0.22 10/3/uL (0.0-0.53); LYMPHOCYTES 20 %; LYMPHOCYTES ABSOLUTE (CALC) 1.44 10/3/uL (0.67-4.30); MONOCYTES 10 %; MONOCYTES ABSOLUTE (CALC) 0.72 10/3/uL (0.21-1.20); NEUTROPHILS ABSOLUTE (CALC) 4.82 10/3/uL (2.02-8.40); PLATELET ESTIMATE ADQ (ADEQUATE); SEGMENTED NEUTROPHIL (0) 67 %; TOTAL NUCLEATED CELLS 100
[2016-10-22 06:09] LABS: BASOPHILS 0.5 %; BASOPHILS ABSOLUTE 0.04 10/3/uL (0.0-0.16); EOSINOPHILS 6.7 %; EOSINOPHILS ABSOLUTE 0.49 10/3/uL (0.0-0.53); IMMATURE GRANULOCYTES 0.3 %; IMMATURE GRANULOCYTES ABSOLUTE 0.02 10/3/uL (0.0-0.11); LYMPHOCYTES 33.2 %; LYMPHOCYTES ABSOLUTE 2.42 10/3/uL (0.67-4.30); MANUAL DIFF NO %; MEAN CORPUS HGB CONC 34.3 g/dL (32.0-36.0); MEAN CORPUSCULAR HEMOGLOB 32.3 pg (26.0-34.0); MEAN CORPUSCULAR VOLUME 94.3 fL (80-100); MEAN PLATELET VOLUME 9.5 fL (9.2-13.0); MONOCYTES 11.6 %; MONOCYTES ABSOLUTE 0.85 10/3/uL (0.21-1.20); NEUTROPHILS 47.7 %; NEUTROPHILS ABSOLUTE 3.48 10/3/uL (2.02-8.40); PLATELET COUNT 209 10/3/uL (150-400); RBC DISTRIBUTION WIDTH 12.8 % (12.0-16.0); RED CELL COUNT 3.71 10/6/uL (4.7-6.1); WHITE BLOOD CELLS 7.3 10/3/uL (4.5-10.5)
[2016-10-22 06:10] LABS: INTERNATIONAL NORMAL RATI 1.1 UNITS (-); PROTIME (NOT ORD) 14.3 SEC (12.0-14.5)
[2016-10-22 06:20] LABS: PARTIAL THROMBO TIME > 150.0 SEC (22.5-37.2)
[2016-10-22 06:23] LABS: CHLORIDE, SERUM 104 MMOL/L (96-112); CHOL/HDL RATIO(NOT ORDER) 2.3 (0-5); CHOLESTEROL 106 MG/DL (< 200); CO2 (CARBON DIOXIDE) 25 MMOL/L (24-34); CREATININE 1.34 MG/DL (0.70-1.30); GFR AFRICAN AMERICAN 56 ML/MIN (>=60); GFR NON AFRICAN AMERICAN 49 ML/MIN (>=60); GLUCOSE, SERUM 154 MG/DL (60-99); LDL CHOLESTEROL 40 MG/DL (< 130); NON-HDL CHOLESTEROL 60 MG/DL (< 160); POTASSIUM, SERUM 4.2 MMOL/L (3.5-5.3); SODIUM, SERUM 138 MMOL/L (135-148); TRIGLYCERIDE 100 MG/DL (< 150)
[2016-10-22 06:24] LABS: BUN (BLOOD UREA NITROGEN) 40 MG/DL (6-23); HDL CHOLESTEROL 46 MG/DL (> 39)
[2016-10-23 02:04] LABS: HEMOGLOBIN 12.3 g/dL (13.6-17.8)
[2016-10-23 02:05] LABS: PARTIAL THROMBO TIME 59.1 SEC (22.5-37.2)
[2016-10-23 08:41] LABS: ALLENS TEST Pos; BE (BASE EXCESS) -2.6 MEQ/L (0 +/- 2.5); CARBOXYHEMOGLOBIN 1.9 % (0-3); HCO3 (ACTUAL BICARBONATE) 21.4 MEQ/L (23-27); HEMOBLOGIN CONTENT 12.2 G/DL (14-18); INSTRUMENT SERIAL # 8083; METHEMOGLOBIN 0.3 % (0-3); O2 CONTENT 16.3 VOL% (18-24); PCO2 (CO2 TENSION) 34 MMHG (35-45); PO2 (O2 TENSION) 84 MMHG (79-93); SAMPLE Arterial; pH 7.41 (7.37-7.43)
[2016-10-23 09:19] LABS: BASOPHILS 0.4 %; BASOPHILS ABSOLUTE 0.03 10/3/uL (0.0-0.16); EOSINOPHILS 6.4 %; EOSINOPHILS ABSOLUTE 0.46 10/3/uL (0.0-0.53); HEMATOCRIT 35.7 % (40.0-51.0); HEMOGLOBIN 12.3 g/dL (13.6-17.8); IMMATURE GRANULOCYTES 0.3 %; IMMATURE GRANULOCYTES ABSOLUTE 0.02 10/3/uL (0.0-0.11); LYMPHOCYTES 26.6 %; MEAN CORPUS HGB CONC 34.5 g/dL (32.0-36.0); MEAN CORPUSCULAR HEMOGLOB 32.8 pg (26.0-34.0); MEAN CORPUSCULAR VOLUME 95.2 fL (80-100); MEAN PLATELET VOLUME 9.2 fL (9.2-13.0); MONOCYTES 11.5 %; MONOCYTES ABSOLUTE 0.82 10/3/uL (0.21-1.20); NEUTROPHILS 54.8 %; NEUTROPHILS ABSOLUTE 3.92 10/3/uL (2.02-8.40); PLATELET COUNT 198 10/3/uL (150-400); RBC DISTRIBUTION WIDTH 12.7 % (12.0-16.0); RED CELL COUNT 3.75 10/6/uL (4.7-6.1); WHITE BLOOD CELLS 7.2 10/3/uL (4.5-10.5)
[2016-10-23 09:22] LABS: MANUAL DIFF NO %
[2016-10-23 09:26] LABS: INTERNATIONAL NORMAL RATI 1.1 UNITS (-); PARTIAL THROMBO TIME 57.2 SEC (22.5-37.2)
[2016-10-23 10:20] LABS: TEG - ANGLE 72.8 DEG (53-72); TEG - MAXIMUM AMPLITUDE 70.3 MM (50-70); TEG - RATE 7.4 MIN (5.0-10.0)
[2016-10-23 10:21] LABS: MAX AMP (ADP) 58.1 MM (35-68); TEG PLAVIX/EFFIENT/TICLID(ADP) 25.1 % INHIB (< 40)
[2016-10-23 18:01] LABS: BE (BASE EXCESS) -2.7 MEQ/L (0 +/- 2.5); CARBOXYHEMOGLOBIN 0.4 % (0-3); HCO3 (ACTUAL BICARBONATE) 21.8 MEQ/L (23-27); HEMOBLOGIN CONTENT 11.3 G/DL (14-18); INSTRUMENT SERIAL # 11843; METHEMOGLOBIN 0.3 % (0-3); PCO2 (CO2 TENSION) 37 MMHG (35-45); PO2 (O2 TENSION) 170 MMHG (79-93); pH 7.39 (7.37-7.43)
[2016-10-23 18:02] LABS: MODE SIMV; O2 CONTENT 15.9 VOL% (18-24); OPERATOR ID 18642; PRESSURE SUPPORT 0 cm.H2O; SAMPLE Arterial; TIDAL VOLUME 750 ML
[2016-10-23 18:13] LABS: BASOPHILS 0.2 %; BASOPHILS ABSOLUTE 0.02 10/3/uL (0.0-0.16); EOSINOPHILS 1.8 %; EOSINOPHILS ABSOLUTE 0.22 10/3/uL (0.0-0.53); HEMATOCRIT 31.2 % (40.0-51.0); HEMOGLOBIN 10.7 g/dL (13.6-17.8); IMMATURE GRANULOCYTES 0.3 %; IMMATURE GRANULOCYTES ABSOLUTE 0.04 10/3/uL (0.0-0.11); LYMPHOCYTES 7.8 %; LYMPHOCYTES ABSOLUTE 0.93 10/3/uL (0.67-4.30); MANUAL DIFF NO %; MEAN CORPUS HGB CONC 34.3 g/dL (32.0-36.0); MEAN CORPUSCULAR HEMOGLOB 32.5 pg (26.0-34.0); MEAN CORPUSCULAR VOLUME 94.8 fL (80-100); MEAN PLATELET VOLUME 9.2 fL (9.2-13.0); MONOCYTES 6.3 %; MONOCYTES ABSOLUTE 0.75 10/3/uL (0.21-1.20); NEUTROPHILS 83.6 %; NEUTROPHILS ABSOLUTE 10.04 10/3/uL (2.02-8.40); PLATELET COUNT 123 10/3/uL (150-400); RBC DISTRIBUTION WIDTH 12.8 % (12.0-16.0); RED CELL COUNT 3.29 10/6/uL (4.7-6.1)
[2016-10-23 18:20] LABS: INTERNATIONAL NORMAL RATI 1.4 UNITS (-); PARTIAL THROMBO TIME 37.2 SEC (22.5-37.2)
[2016-10-23 18:23] LABS: PROTIME (NOT ORD) 17.2 SEC (12.0-14.5)
[2016-10-23 18:26] LABS: CALCIUM, SERUM 8.3 MG/DL (8.5-10.4); CHLORIDE, SERUM 114 MMOL/L (96-112); CO2 (CARBON DIOXIDE) 26 MMOL/L (24-34); CREATININE 1.15 MG/DL (0.70-1.30); GFR AFRICAN AMERICAN 68 ML/MIN (>=60); GFR NON AFRICAN AMERICAN 59 ML/MIN (>=60)
[2016-10-23 18:28] LABS: BUN (BLOOD UREA NITROGEN) 31 MG/DL (6-23); GLUCOSE, SERUM 75 MG/DL (60-99); SODIUM, SERUM 147 MMOL/L (135-148)
[2016-10-23 23:52] LABS: BE (BASE EXCESS) -2.6 MEQ/L (0 +/- 2.5); CARBOXYHEMOGLOBIN 0.6 % (0-3); DEVICE NC; HCO3 (ACTUAL BICARBONATE) 22.1 MEQ/L (23-27); HEMOBLOGIN CONTENT 11.9 G/DL (14-18); INSTRUMENT SERIAL # 11843; METHEMOGLOBIN 0.1 % (0-3); O2 CONTENT 16.3 VOL% (18-24); OPERATOR ID 32193; PCO2 (CO2 TENSION) 38 MMHG (35-45); PO2 (O2 TENSION) 98 MMHG (79-93); SAMPLE Arterial; pH 7.38 (7.37-7.43)
[2016-10-24 00:01] LABS: HEMATOCRIT 32.8 % (40.0-51.0); HEMOGLOBIN 11.3 g/dL (13.6-17.8); MANUAL DIFF YES %; MEAN CORPUS HGB CONC 34.5 g/dL (32.0-36.0); MEAN CORPUSCULAR HEMOGLOB 32.5 pg (26.0-34.0); MEAN CORPUSCULAR VOLUME 94.3 fL (80-100); MEAN PLATELET VOLUME 9.2 fL (9.2-13.0); PLATELET COUNT 168 10/3/uL (150-400); RBC DISTRIBUTION WIDTH 12.8 % (12.0-16.0); RED CELL COUNT 3.48 10/6/uL (4.7-6.1); WHITE BLOOD CELLS 16.2 10/3/uL (4.5-10.5)
[2016-10-24 00:15] LABS: BUN (BLOOD UREA NITROGEN) 32 MG/DL (6-23); CALCIUM, SERUM 8.2 MG/DL (8.5-10.4); CHLORIDE, SERUM 115 MMOL/L (96-112); CO2 (CARBON DIOXIDE) 25 MMOL/L (24-34); CREATININE 1.12 MG/DL (0.70-1.30); GFR AFRICAN AMERICAN 70 ML/MIN (>=60); GFR NON AFRICAN AMERICAN 60 ML/MIN (>=60); POTASSIUM, SERUM 4.4 MMOL/L (3.5-5.3); SODIUM, SERUM 145 MMOL/L (135-148)
[2016-10-24 00:16] LABS: GLUCOSE, SERUM 115 MG/DL (60-99)
[2016-10-24 00:23] LABS: BAND NEUTROPHILS 4 %; LYMPHOCYTES 3 %; LYMPHOCYTES ABSOLUTE (CALC) 0.49 10/3/uL (0.67-4.30); MONOCYTES 1 %; MONOCYTES ABSOLUTE (CALC) 0.16 10/3/uL (0.21-1.20); NEUTROPHILS ABSOLUTE (CALC) 15.55 10/3/uL (2.02-8.40); PLATELET ESTIMATE ADQ (ADEQUATE); RBC MORPHOLOGY NORM (NORMAL); SEGMENTED NEUTROPHIL (0) 92 %; TOTAL NUCLEATED CELLS 100
[2016-10-24 05:00] LABS: BASOPHILS 0.1 %; BASOPHILS ABSOLUTE 0.01 10/3/uL (0.0-0.16); EOSINOPHILS 0 %; HEMATOCRIT 31.4 % (40.0-51.0); HEMOGLOBIN 10.8 g/dL (13.6-17.8); IMMATURE GRANULOCYTES 0.3 %; IMMATURE GRANULOCYTES ABSOLUTE 0.05 10/3/uL (0.0-0.11); LYMPHOCYTES 7.1 %; LYMPHOCYTES ABSOLUTE 1.25 10/3/uL (0.67-4.30); MEAN CORPUS HGB CONC 34.4 g/dL (32.0-36.0); MEAN CORPUSCULAR HEMOGLOB 32.2 pg (26.0-34.0); MEAN CORPUSCULAR VOLUME 93.7 fL (80-100); MEAN PLATELET VOLUME 9.4 fL (9.2-13.0); MONOCYTES 3.6 %; MONOCYTES ABSOLUTE 0.63 10/3/uL (0.21-1.20); NEUTROPHILS 88.9 %; NEUTROPHILS ABSOLUTE 15.64 10/3/uL (2.02-8.40); PLATELET COUNT 168 10/3/uL (150-400); RED CELL COUNT 3.35 10/6/uL (4.7-6.1); WHITE BLOOD CELLS 17.6 10/3/uL (4.5-10.5)
[2016-10-24 05:02] LABS: MANUAL DIFF NO %
[2016-10-24 05:15] LABS: BUN (BLOOD UREA NITROGEN) 32 MG/DL (6-23); CALCIUM, SERUM 10.4 MG/DL (8.5-10.4); CHLORIDE, SERUM 115 MMOL/L (96-112); CO2 (CARBON DIOXIDE) 22 MMOL/L (24-34); CREATININE 1.17 MG/DL (0.70-1.30); GFR AFRICAN AMERICAN 66 ML/MIN (>=60); GFR NON AFRICAN AMERICAN 57 ML/MIN (>=60); GLUCOSE, SERUM 98 MG/DL (60-99); POTASSIUM, SERUM 4.3 MMOL/L (3.5-5.3); SODIUM, SERUM 145 MMOL/L (135-148)
[2016-10-25 06:39] LABS: BASOPHILS 0.1 %; BASOPHILS ABSOLUTE 0.01 10/3/uL (0.0-0.16); EOSINOPHILS 0 %; HEMATOCRIT 28.5 % (40.0-51.0); HEMOGLOBIN 9.5 g/dL (13.6-17.8); IMMATURE GRANULOCYTES 0.5 %; IMMATURE GRANULOCYTES ABSOLUTE 0.08 10/3/uL (0.0-0.11); LYMPHOCYTES 10.7 %; LYMPHOCYTES ABSOLUTE 1.82 10/3/uL (0.67-4.30); MEAN CORPUS HGB CONC 33.3 g/dL (32.0-36.0); MEAN CORPUSCULAR HEMOGLOB 32.4 pg (26.0-34.0); MEAN PLATELET VOLUME 10.2 fL (9.2-13.0); MONOCYTES 10.5 %; MONOCYTES ABSOLUTE 1.79 10/3/uL (0.21-1.20); NEUTROPHILS 78.2 %; NEUTROPHILS ABSOLUTE 13.27 10/3/uL (2.02-8.40); PLATELET COUNT 161 10/3/uL (150-400); RBC DISTRIBUTION WIDTH 13.6 % (12.0-16.0); RED CELL COUNT 2.93 10/6/uL (4.7-6.1)
[2016-10-25 06:40] LABS: MANUAL DIFF NO %; MEAN CORPUSCULAR VOLUME 97.3 fL (80-100)
[2016-10-25 06:56] LABS: A/G RATIO 1.5 (0.7-1.9); ALBUMIN 3.7 G/DL (3.5-5.0); ALKALINE PHOSPHATASE 37 U/L (45-117); CO2 (CARBON DIOXIDE) 23 MMOL/L (24-34); POTASSIUM, SERUM 5.1 MMOL/L (3.5-5.3); SGOT(AST) 41 U/L (5-40); SGPT(ALT) 32 U/L (5-65); TOTAL BILIRUBIN 0.6 MG/DL (0-1.2); TOTAL PROTEIN 6.1 G/DL (6.0-8.5)
[2016-10-25 06:59] LABS: BUN (BLOOD UREA NITROGEN) 58 MG/DL (6-23); CALCIUM, SERUM 8.1 MG/DL (8.5-10.4); CHLORIDE, SERUM 105 MMOL/L (96-112); CREATININE 2.32 MG/DL (0.70-1.30); GFR AFRICAN AMERICAN 29 ML/MIN (>=60); GFR NON AFRICAN AMERICAN 25 ML/MIN (>=60); GLOBULIN 2.4 G/DL (2.5-4.1); GLUCOSE, SERUM 193 MG/DL (60-99); SODIUM, SERUM 137 MMOL/L (135-148)
[2016-10-25 18:05] LABS: ASCORBIC ACID (UR NOT ORDER) 40 (NEG); BILIRUBIN, URINE NEGATIVE (NEG); KETONE, URINE NEGATIVE (NEG); LEUKOCYTE ESTERASE(NOT OR MOD (NEG); WBC (NOT ORDERED) (RFLEX) 20 (0-5)
[2016-10-25 18:15] LABS: SODIUM, URINE 22 MEQ/L; UREA NITROGEN (RANDOM UR) 1419 MG/DL
[2016-10-26 06:33] LABS: BASOPHILS 0.1 %; BASOPHILS ABSOLUTE 0.02 10/3/uL (0.0-0.16); EOSINOPHILS 0.4 %; EOSINOPHILS ABSOLUTE 0.06 10/3/uL (0.0-0.53); HEMOGLOBIN 9.1 g/dL (13.6-17.8); IMMATURE GRANULOCYTES 0.4 %; IMMATURE GRANULOCYTES ABSOLUTE 0.06 10/3/uL (0.0-0.11); LYMPHOCYTES 11.2 %; LYMPHOCYTES ABSOLUTE 1.61 10/3/uL (0.67-4.30); MEAN CORPUS HGB CONC 33.7 g/dL (32.0-36.0); MEAN CORPUSCULAR HEMOGLOB 32.6 pg (26.0-34.0); MEAN CORPUSCULAR VOLUME 96.8 fL (80-100); MEAN PLATELET VOLUME 9.8 fL (9.2-13.0); MONOCYTES 11.8 %; NEUTROPHILS 76.1 %; NEUTROPHILS ABSOLUTE 10.95 10/3/uL (2.02-8.40); PLATELET COUNT 154 10/3/uL (150-400); RBC DISTRIBUTION WIDTH 13.3 % (12.0-16.0); RED CELL COUNT 2.79 10/6/uL (4.7-6.1); WHITE BLOOD CELLS 14.4 10/3/uL (4.5-10.5)
[2016-10-26 06:34] LABS: MANUAL DIFF NO %
[2016-10-26 06:48] LABS: A/G RATIO 1.3 (0.7-1.9); ALBUMIN 3.3 G/DL (3.5-5.0); ALKALINE PHOSPHATASE 37 U/L (45-117); CALCIUM, SERUM 8.3 MG/DL (8.5-10.4); CHLORIDE, SERUM 108 MMOL/L (96-112); CO2 (CARBON DIOXIDE) 25 MMOL/L (24-34); GLOBULIN 2.5 G/DL (2.5-4.1); PHOSPHORUS, SERUM 2.4 MG/DL (2.5-4.5); POTASSIUM, SERUM 4.4 MMOL/L (3.5-5.3); SGOT(AST) 94 U/L (5-40); SGPT(ALT) 91 U/L (5-65); SODIUM, SERUM 141 MMOL/L (135-148); TOTAL BILIRUBIN 0.6 MG/DL (0-1.2); TOTAL PROTEIN 5.8 G/DL (6.0-8.5)
[2016-10-26 06:49] LABS: BUN (BLOOD UREA NITROGEN) 51 MG/DL (6-23); CREATININE 1.37 MG/DL (0.70-1.30); GFR AFRICAN AMERICAN 55 ML/MIN (>=60); GFR NON AFRICAN AMERICAN 47 ML/MIN (>=60); GLUCOSE, SERUM 119 MG/DL (60-99); TROPONIN I 0.67 NG/ML (<0.05)
[2016-10-26 15:30] LABS: ASCORBIC ACID (UR NOT ORDER) 40 (NEG); BILIRUBIN, URINE NEGATIVE (NEG); KETONE, URINE NEGATIVE (NEG); LEUKOCYTE ESTERASE(NOT OR LARGE (NEG); WBC (NOT ORDERED) (RFLEX) 65 (0-5)
[2016-10-27 06:20] LABS: BASOPHILS 0.1 %; BASOPHILS ABSOLUTE 0.02 10/3/uL (0.0-0.16); EOSINOPHILS 2.1 %; EOSINOPHILS ABSOLUTE 0.39 10/3/uL (0.0-0.53); HEMATOCRIT 29.2 % (40.0-51.0); IMMATURE GRANULOCYTES 0.2 %; IMMATURE GRANULOCYTES ABSOLUTE 0.04 10/3/uL (0.0-0.11); LYMPHOCYTES 13.6 %; MEAN CORPUS HGB CONC 34.2 g/dL (32.0-36.0); MEAN CORPUSCULAR HEMOGLOB 32.6 pg (26.0-34.0); MEAN CORPUSCULAR VOLUME 95.1 fL (80-100); MEAN PLATELET VOLUME 9.6 fL (9.2-13.0); NEUTROPHILS ABSOLUTE 13.17 10/3/uL (2.02-8.40); RBC DISTRIBUTION WIDTH 13.4 % (12.0-16.0); RED CELL COUNT 3.07 10/6/uL (4.7-6.1); WHITE BLOOD CELLS 18.3 10/3/uL (4.5-10.5)
[2016-10-27 06:21] LABS: MANUAL DIFF NO %; PLATELET COUNT 202 10/3/uL (150-400)
[2016-10-27 06:34] LABS: A/G RATIO 1.1 (0.7-1.9); ALBUMIN 3.4 G/DL (3.5-5.0); ALKALINE PHOSPHATASE 45 U/L (45-117); BUN (BLOOD UREA NITROGEN) 43 MG/DL (6-23); CALCIUM, SERUM 8.2 MG/DL (8.5-10.4); CHLORIDE, SERUM 108 MMOL/L (96-112); CO2 (CARBON DIOXIDE) 24 MMOL/L (24-34); CREATININE 1.17 MG/DL (0.70-1.30); GFR AFRICAN AMERICAN 66 ML/MIN (>=60); GFR NON AFRICAN AMERICAN 57 ML/MIN (>=60); GLOBULIN 3.2 G/DL (2.5-4.1); GLUCOSE, SERUM 82 MG/DL (60-99); PHOSPHORUS, SERUM 2.3 MG/DL (2.5-4.5); POTASSIUM, SERUM 4.1 MMOL/L (3.5-5.3); SGOT(AST) 68 U/L (5-40); SGPT(ALT) 96 U/L (5-65); SODIUM, SERUM 139 MMOL/L (135-148); TOTAL PROTEIN 6.6 G/DL (6.0-8.5)
[2016-10-28 06:18] LABS: BASOPHILS 0.2 %; BASOPHILS ABSOLUTE 0.03 10/3/uL (0.0-0.16); EOSINOPHILS 4.8 %; EOSINOPHILS ABSOLUTE 0.59 10/3/uL (0.0-0.53); HEMATOCRIT 27.9 % (40.0-51.0); HEMOGLOBIN 9.7 g/dL (13.6-17.8); IMMATURE GRANULOCYTES 0.2 %; IMMATURE GRANULOCYTES ABSOLUTE 0.03 10/3/uL (0.0-0.11); LYMPHOCYTES 18.2 %; LYMPHOCYTES ABSOLUTE 2.23 10/3/uL (0.67-4.30); MANUAL DIFF NO %; MEAN CORPUS HGB CONC 34.8 g/dL (32.0-36.0); MEAN CORPUSCULAR VOLUME 94.9 fL (80-100); MEAN PLATELET VOLUME 9.5 fL (9.2-13.0); MONOCYTES 11.7 %; MONOCYTES ABSOLUTE 1.44 10/3/uL (0.21-1.20); NEUTROPHILS 64.9 %; NEUTROPHILS ABSOLUTE 7.94 10/3/uL (2.02-8.40); PLATELET COUNT 216 10/3/uL (150-400); RBC DISTRIBUTION WIDTH 13.2 % (12.0-16.0); RED CELL COUNT 2.94 10/6/uL (4.7-6.1); WHITE BLOOD CELLS 12.3 10/3/uL (4.5-10.5)
[2016-10-28 06:30] LABS: BUN (BLOOD UREA NITROGEN) 31 MG/DL (6-23); CALCIUM, SERUM 8.8 MG/DL (8.5-10.4); CHLORIDE, SERUM 106 MMOL/L (96-112); CO2 (CARBON DIOXIDE) 23 MMOL/L (24-34); CREATININE 1.01 MG/DL (0.70-1.30); GFR AFRICAN AMERICAN 79 ML/MIN (>=60); GFR NON AFRICAN AMERICAN 68 ML/MIN (>=60); GLUCOSE, SERUM 80 MG/DL (60-99); POTASSIUM, SERUM 4.2 MMOL/L (3.5-5.3); SODIUM, SERUM 138 MMOL/L (135-148)
[2016-10-29 04:02] LABS: INTERNATIONAL NORMAL RATI 1.3 UNITS (-); PROTIME (NOT ORD) 15.9 SEC (12.0-14.5)
[2016-10-29 04:08] LABS: BUN (BLOOD UREA NITROGEN) 33 MG/DL (6-23); CALCIUM, SERUM 8.2 MG/DL (8.5-10.4); CHLORIDE, SERUM 106 MMOL/L (96-112); CO2 (CARBON DIOXIDE) 24 MMOL/L (24-34); CREATININE 1.15 MG/DL (0.70-1.30); GFR AFRICAN AMERICAN 68 ML/MIN (>=60); GFR NON AFRICAN AMERICAN 59 ML/MIN (>=60); GLUCOSE, SERUM 93 MG/DL (60-99); POTASSIUM, SERUM 4.5 MMOL/L (3.5-5.3); SODIUM, SERUM 139 MMOL/L (135-148)
[2016-10-29] MEDS ORDERED: CORDARONE PO (11:39)
[2016-10-29] MEDS ORDERED: NORCO1 TA1 PO (11:39)
[2016-10-29] MEDS ORDERED: C5 PO (11:40)
== END 2016-10-29 13:32 | disposition home or self-care (01) | DRG 233 ==
LOC: 7NO 21:11 → CVICU 10-23 17:05 → 5NO 10-24 13:48
PROVIDERS: Hospitalist; Internal Medicine; Internal Medicine Cardiovascular Disease; Internal Medicine Critical Care Medicine; Internal Medicine Nephrology; Thoracic Surgery (Cardiothoracic Vascular Surgery)
PROC: 4A023N7 Measurement of Cardiac Sampling and Pressure, Left Heart, Percutaneous Approach (ICD-10-PCS; principal; 2016-10-22)
PROC: B2111ZZ Fluoroscopy of Multiple Coronary Arteries using Low Osmolar Contrast (ICD-10-PCS; 2016-10-22)
PROC: B2151ZZ Fluoroscopy of Left Heart using Low Osmolar Contrast (ICD-10-PCS; 2016-10-22)
PROC: 02100Z9 Bypass Coronary Artery, One Artery from Left Internal Mammary, Open Approach (ICD-10-PCS; 2016-10-23)
PROC: 06BP0ZZ Excision of Right Saphenous Vein, Open Approach (ICD-10-PCS; 2016-10-23)
PROC: [UNRECOGNIZED PROCEDURE] (2016-10-23)
PROC: 5A1221Z Performance of Cardiac Output, Continuous (ICD-10-PCS; 2016-10-23)
PROC: B246ZZ4 Ultrasonography of Right and Left Heart, Transesophageal (ICD-10-PCS; 2016-10-23)
PROC: 021209W Bypass Coronary Artery, Three Arteries from Aorta with Autologous Venous Tissue, Open Approach (ICD-10-PCS; 2016-10-23 18:00)
DX: I21.4 Non-ST elevation (NSTEMI) myocardial infarction (principal); J95.821 Acute postprocedural respiratory failure; N17.9 Acute kidney failure, unspecified; I97.89 Other postprocedural complications and disorders of the circulatory system, not elsewhere classified; E11.22 Type 2 diabetes mellitus with diabetic chronic kidney disease; N18.3 Chronic kidney disease, stage 3 (moderate); E78.00 Pure hypercholesterolemia, unspecified; Z79.84 Long term (current) use of oral hypoglycemic drugs; Z85.46 Personal history of malignant neoplasm of prostate; E78.5 Hyperlipidemia, unspecified; I25.10 Atherosclerotic heart disease of native coronary artery without angina pectoris; Z79.82 Long term (current) use of aspirin; I12.9 Hypertensive chronic kidney disease with stage 1 through stage 4 chronic kidney disease, or unspecified chronic kidney disease; I48.91 Unspecified atrial fibrillation
CPT/HCPCS: 36415; 71010; 71020; 76775; 80048; 80053; 80061; 80069; 80076; 81001; 82330; 82550; 82553; 82805; 82962; 83036; 83540; 83550; 83735; 83880; 84100; 84132; 84300; 84443; 84484; 84540; 85014; 85018; 85025; 85347; 85379; 85384; 85576; 85576-59; 85610; 85730; 86850; 86900; 86901; 86920; 87086; 87641; 93005; 93308; 93312; 93320; 93325; 93454; 93880; 93975; 94002; 94640; 94660; 94770; 99152; A9270-GY; C1713; C1725; C1751; C1769; C1894; C8929; G0365; J0282; J0360; J0690; J1644; J1940; J2150; J2250; J2440; J2720; J2795; J2930; J3010; J3473; J3475; J3480; P9045; P9047; Q9957; Q9967